=== PATIENT | male | born 1940 ===

== ENCOUNTER 2017-12-27 14:10 | Outpatient (CLI) | payer MEDICARE ==
[2017-12-27 14:49] LABS: Bilirubin Negative (Negative); Blood, Urine Negative (Negative); Clarity Clear (Clear); Glucose, Urine (Dipstick) Negative (Negative); Leukocyte Negative (Negative); Nitrite Negative (Negative); Protein, Urine (Dipstick) Negative (Neg-Trace); Urobilinogen 0.2 mg/dL (0.2-1.0)
[2017-12-27 14:52] LABS: Bacteria/HPF Rare-Few HPF (None Seen); RBC/HPF 0-3 HPF (0-3); Squamous Epithelial 0-3 HPF (0-3); WBC/HPF None Seen HPF (0-3)
== END 2017-12-27 14:11 | disposition home or self-care (01) ==
LOC: MADLAB 14:10
PROVIDERS: ATTEND General Practice
DX: R53.81 Other malaise (principal)
CPT/HCPCS: 36415; 81001; 87086